=== PATIENT | female | born 1950 | race Caucasian/White ===

== ENCOUNTER 2023-11-18 22:46 | Emergency (ER) | payer OTHER ==
[~2023-11-18] VITALS: Ht 167.6 cm; Wt 63.0 kg
[2023-11-18 22:55] VITALS: BP 120/69
[2023-11-18 23:00] VITALS: BP 120/61
== END 2023-11-18 23:25 | disposition home or self-care (01) | DRG 605 ==
LOC: ED 22:46
DX: S61.214A Laceration without foreign body of right ring finger without damage to nail, initial encounter (principal); W26.0XXA Contact with knife, initial encounter